=== PATIENT | female | born 1975 | race African-American/Black ===

== ENCOUNTER 2018-01-07 08:00 | Inpatient (IN) | payer OTHER ==
--- NOTE | 2018-02-03 09:14 | HP ---
History & Physical Update - Physical Physical: No Change - Assessment Assessment: No Change - Plan Plan: No Change
[2018-02-03] MEDS ORDERED: ceFAZolin SODIUM 1 GM VIAL ONE (09:36)
[2018-02-03] MEDS ORDERED: ROPIVACAINE HCL 0.5% 30ML VIAL ONE (09:55)
[2018-02-03] MEDS ORDERED: DEXAMETHASONE SOD PHOSPHATE/PF 10 MG/ML SDV ONE (09:55)
[2018-02-03] MEDS ORDERED: ceFAZolin 2 GRAM PREMIX BAG IVPB SCH (10:00)
[2018-02-03] MEDS ORDERED: MIDAZOLAM HCL 2 MG/2 ML SINGLE DOSE VIAL ONE ×3 (10:01→10:48)
[2018-02-03] MEDS ORDERED: fentaNYL CITRATE 250 MCG/5 ML VIAL ONE (10:48)
[2018-02-03] MEDS ORDERED: LIDOCAINE HCL/PF 2% SDV 5ML VIAL ONE (10:48)
[2018-02-03] MEDS ORDERED: ONDANSETRON 4 MG/2 ML VIAL ONE (10:48)
[2018-02-03] MEDS ORDERED: PROPOFOL 20 ML ONE (10:48)
[2018-02-03] MEDS ORDERED: ROCURONIUM BROMIDE 50 MG/5 ML VIAL ONE ×2 (10:48→11:57)
[2018-02-03] MEDS ORDERED: DEXAMETHASONE SOD PHOSPHATE 4 MG/1 ML VIAL ONE (10:48)
[2018-02-03] MEDS ORDERED: ceFAZolin SODIUM 1 GM VIAL IVPB ONE (10:59)
[2018-02-03] MEDS ORDERED: DESFLURANE GAS 240 ML BOTTLE IH ONE (11:30)
[2018-02-03] MEDS ORDERED: NEOSTIGMINE METHYLSULFATE 0.5 MG/ML - 10 ML MDV ONE (12:53)
[2018-02-03] MEDS ORDERED: PHENYLEPHRINE HCL 10 MG/1 ML SINGLE DOSE VIAL ONE (12:53)
[2018-02-03] MEDS ORDERED: GLYCOPYRROLATE 0.2 MG/1 ML VIAL ONE (12:54)
[2018-02-03] MEDS ORDERED: PROMETHAZINE HCL 25 MG/1 ML VIAL IVPUSH PRN (13:08)
[2018-02-03] MEDS ORDERED: ONDANSETRON 4 MG/2 ML VIAL IVPUSH PRN ×2 (13:09→13:14)
[2018-02-03] MEDS ORDERED: PROMETHAZINE HCL 25 MG/1 ML VIAL IVPB PRN (13:09)
[2018-02-03] MEDS ORDERED: DEXAMETHASONE SOD PHOSPHATE 4 MG/1 ML VIAL IVPUSH PRN (13:09)
[2018-02-03] MEDS ORDERED: oxyCODONE HCL 5 MG TABLET PO PRN (13:14)
[2018-02-03] MEDS ORDERED: IBUPROFEN 800 MG/8 ML IJ IVPB PRN (13:14)
[2018-02-03] MEDS ORDERED: ELECTROLYTE-148 SOLN 1,000 ML IV SCH (13:15)
[2018-02-03] MEDS: HYDROmorphone *PCA* 10MG/50ML DISP.SYRIN PCA SCH (13:30)
--- NOTE | 2018-02-03 14:01 | OP ---
DATE OF OPERATION: 02/03/2018 PREOPERATIVE DIAGNOSIS: Pelvic pain, menorrhagia, anemia, fibroid uterus. POSTOPERATIVE DIAGNOSIS: Pelvic pain, menorrhagia, anemia, fibroid uterus. PROCEDURE: Supracervical abdominal hysteroscopy and bilateral salpingectomy. SURGEON: Vargas Maria MD PATIENT BILLER: Najma Mandujano MD ANESTHESIA: General. ESTIMATED BLOOD LOSS: 150 mL. DESCRIPTION OF PROCEDURE: The patient was taken to the operating room. Under adequate general anesthesia, abdomen and perineum were prepped and draped. Pfannenstiel abdominal skin incision was made over the previous incision. Abdominal wall was cut layer by layer until peritoneum was exposed and incised. Upon entering the abdominal cavity, upper abdomen was checked and was normal. Bowels were packed away. There was a large fibroid uterus, multiple large myomas were seen. Both ovaries were normal. The right ovary had a corpus luteum cyst. Cul-de-sac was free of adhesions. At this time, after bowels were packed away, the round ligaments were identified bilaterally, clamped with bipolar cautery clamp, cauterized, and cut. Then the anterior leaf of the broad ligament was opened, and bladder was pushed down. Then the right tube was cauterized along the mesosalpinx, and the tube was removed with LigaSure cautery. Then a hole was made in the broad ligament, and the ovarian ligament was grasped with a Mario clamp and cauterized with LigaSure cautery and then was tagged with 2-0 Vicryl sutures bilaterally. At this time, the left tube also was removed with a LigaSure suture along the mesosalpinx. Adnexa was freed from the uterus, and the bladder was further pushed down. Uterine artery was identified bilaterally, clamped with Mario clamp, cut, and the clamp replaced with 0 Vicryl suture bilaterally. The paracervical area was clamped with a Mario clamp, cut, and the clamp replaced with 0 Vicryl suture bilaterally. No active bleeding was seen. The pelvic cavity was several times irrigated then reperitonealization of the pelvic floor was done with a continuous suture of 2-0 Vicryl. There was slight oozing on a right ovarian pedicle along the infundibulopelvic vessels, which the 3-0 interrupted suture was placed and hemostasis was established. Then irrigation was done, and no bleeding was seen. There was a small amount of bleeding from the corpus luteum cyst, which was controlled with pressure. Then all of the lap, sponge, and instrument counts were correct. Surgicel was placed at the base of the right ovary. Peritoneum was closed with 0 Vicryl continuous suture. Muscles were brought together with interrupted suture of 0 Vicryl. Fascia was closed with 0 Vicryl continuous suture. Subcutaneous fat with interrupted suture of 0 Vicryl. The skin was closed with 4-0 Biosyn subcuticular continuous suture. The patient tolerated the procedure well and left the OR in good condition. Sarah [id number]
[2018-02-03] MEDS: CEFAZOLIN 2 GM/D5W 2 GM/50 ML ML IVPB SCH (17:37)
[2018-02-04] MEDS: CEFAZOLIN 2 GM/D5W 2 GM/50 ML ML IVPB SCH ×2 (02:02→09:03)
[2018-02-04] MEDS: HYDROmorphone *PCA* 10MG/50ML DISP.SYRIN PCA SCH (04:45)
[2018-02-04] MEDS ORDERED: PCA PUMP KEY 1 EACH EACH ONE ×3 (05:30→12:53)
[2018-02-04] MEDS ORDERED: HYDROmorphone *PCA* 10MG/50ML DISP.SYRIN PCA ONE (05:32)
[2018-02-04 07:08] LABS: HEMATOCRIT 33.8 % (32.4-45.2); HEMOGLOBIN 10.6 GM/dL (10.7-15.3); MCH 23.4 pg (25.7-33.7); MCHC 31.2 g/dl (32.0-36.0); MEAN CELL VOLUME 74.9 fl (80-96); PLATELET COUNT 349 K/MM3 (134-434); RBC 4.52 M/mm3 (3.60-5.2)
[2018-02-04 07:59] LABS: ANION GAP 7 MMOL/L (8-16); BLOOD UREA NITROGEN 9 mg/dL (7-18); CALCIUM 8.4 mg/dL (8.5-10.1); CHLORIDE 103 mmol/L (98-107); CO2 27 mmol/L (21-32); CREATININE 0.8 mg/dL (0.55-1.3); GLUCOSE,RANDOM 110 mg/dL (74-106); POTASSIUM 3.6 mmol/L (3.5-5.1); SODIUM 137 mmol/L (136-145)
[2018-02-04] MEDS ORDERED: DOCUSATE SODIUM 100 MG CAPSULE (FP) PO PRN (08:27)
[2018-02-04] MEDS ORDERED: oxyCODONE HCL 5 MG TABLET PO PRN (08:27)
[2018-02-04] MEDS: ENOXAPARIN NA (PORCINE) 40 MG/0.4 ML DISP.SYRIN SQ SCH (09:04)
--- NOTE | 2018-02-04 09:34 | PN ---
Progress Note, Physician Chief Complaint: Pt sitting comfortably in bed, pain controlled with PROSPECTING DRILLER. No GA complaints. - Current Medication List Current Medications: Active Medications Acetaminophen (Tylenol -) 650 mg PO Q4H PRN PRN Reason: PAIN LEVEL 1-5 Dexamethasone Sodium Phosphate (Decadron Injection -) 4 mg IVPUSH ONCE PRN PRN Reason: NAUSEA AND/OR VOMITING Diphenhydramine HCl (Benadryl Injection -) 12.5 mg IVPUSH ONCE PRN PRN Reason: FOR ITCHING Docusate Sodium (Colace -) 100 mg PO Q8H PRN PRN Reason: CONSTIPATION Enoxaparin Sodium (Lovenox -) 40 mg SQ DAILY [facility] Last Admin: 02/04/18 09:04 Dose: 40 mg Cefazolin Sodium/Dextrose (Ancef 2 Gm Premixed Ivpb -) 2 gm in 50 mls @ 100 mls /hr IVPB Q8H-IV YESENIA Stop: 02/04/18 17:59 Last Admin: 02/04/18 09:03 Dose: 100 mls/hr Parenteral Electrolytes (Plasma-Lyte 148 -) 1,000 mls @ 125 mls/hr IV ASDIR [facility] Last Admin: 02/03/18 14:50 Dose: 0 mls Ibuprofen (Motrin -) 600 mg PO Q6H PRN PRN Reason: FEVER Ibuprofen (Caldolor Injection -) 800 mg IVPB Q6H PRN PRN Reason: Fever - If PO not effective. Lotrel 10/20 Mg 1 each PO [facility] Ondansetron HCl (Zofran Injection) 4 mg IVPUSH Q6H PRN PRN Reason: NAUSEA Oxycodone HCl (Roxicodone -) 5 mg PO Q4H PRN PRN Reason: PAIN LEVEL 4 - 6 Oxycodone HCl (Roxicodone -) 10 mg PO Q6H PRN PRN Reason: PAIN LEVEL 7 - 10 Promethazine HCl (Phenergan Injection -) 12.5 mg IVPB Q6H PRN PRN Reason: NAUSEA AND/OR VOMITING Last Admin: 02/03/18 13:35 Dose: 12.5 mg Simethicone (Mylicon -) 80 mg PO Q4H PRN PRN Reason: GAS - Objective Vital Signs: Vital Signs Temperature 98.7 F 02/04/18 08:16 Pulse Rate 107 H 09/19/18 08:16 Respiratory Rate 20 02/04/18 08:16 Blood Pressure 142/79 02/04/18 08:16 O2 Sat by Pulse Oximetry (%) 100 02/03/18 15:10 Constitutional: Yes: Well Nourished, No Distress, Calm Musculoskeletal: Yes: WNL Neurological: Yes: WNL, Alert, Oriented Labs: CBC, BMP 02/04/18 06:45 02/04/18 06:45 Assessment/Plan POD#1 s/p Total Abdominal Hysterectomy under GA. Doing well. D/C from anesthesia
--- NOTE | 2018-02-04 11:37 | PN ---
Progress Note (short form) - Note Progress Note: pod 1 doing well,sitting on chair. has generalized itching CBC, BMP 02/04/18 06:45 02/04/18 06:45 Last Vital Signs Temp Pulse Resp BP Pulse Ox 98.7 F 107 H 20 142/79 100 02/04/18 08:16 02/04/18 08:16 02/04/18 08:16 02/04/18 08:16 02/03/18 15:10 abdomen soft, no distension, no cva incision dry, clean no calf tenderness plan ambulate , oob, advance diet pain mamnagement
[2018-02-04] MEDS ORDERED: diphenhydrAMINE HCL 25 MG CAPSULE (FP) PO PRN (11:38)
[2018-02-04] MEDS: SIMETHICONE 80 MG TAB.CHEW (FP) PO PRN (11:52)
[2018-02-04] MEDS: IBUPROFEN 600 MG TABLET (FP) PO PRN ×2 (11:52→20:49)
[2018-02-04] MEDS: ACETAMINOPHEN 325 MG TABLET (FP) PO PRN (20:49)
[2018-02-04] MEDS ORDERED: LOTREL PO SCH (22:00)
[2018-02-05] MEDS: IBUPROFEN 600 MG TABLET (FP) PO PRN ×2 (06:11→13:25)
[2018-02-05] MEDS: ACETAMINOPHEN 325 MG TABLET (FP) PO PRN ×2 (06:11→13:24)
[2018-02-05 08:37] LABS: BASO % 0.4 % (0-2.0); EOS % 0.8 % (0-4.5); HEMATOCRIT 33.1 % (32.4-45.2); HEMOGLOBIN 10.6 GM/dL (10.7-15.3); MCH 24.2 pg (25.7-33.7); MCHC 31.9 g/dl (32.0-36.0); MEAN CELL VOLUME 75.7 fl (80-96); MEAN PLT VOLUME 8.4 fl (7.5-11.1); MONO % 11.3 % (3.8-10.2); NEUT % 63.5 % (42.8-82.8); PLATELET COUNT 313 K/MM3 (134-434); RBC 4.37 M/mm3 (3.60-5.2); RDW 22.1 % (11.6-15.6); WHITE BLOOD COUNT 11.2 K/mm3 (4.0-10.0)
[2018-02-05] MEDS ORDERED: MAGNESIUM HYDROX 2400MG/30ML ORAL SUSPENSION 30 ML CUP PO ONE (09:15)
[2018-02-05] MEDS: ENOXAPARIN NA (PORCINE) 40 MG/0.4 ML DISP.SYRIN SQ SCH (09:44)
[2018-02-05] MEDS: SIMETHICONE 80 MG TAB.CHEW (FP) PO PRN (13:24)
--- NOTE | 2018-02-05 14:51 | PATH ---
Surgical Pathology Report Patient Name: RENATO ESCOBAR [facility]. Rec. #: [id number] /Age/Gender: 1975 (Age: 43) / F Account: [id number] Location: [facility] OBS/FIELD COORDINATOR Taken: 02/03/2018 Received: 02/03/2018 Reported: 02/05/2018 Physicians: Vargas Maria M.D. Specimen(s) Received A: RIGHT FALLOPIAN TUBE B: LEFT FALLOPIAN TUBE C: UTERUS AND UTERINE FIBROIDS Clinical History Menorrhagia, pelvic pain, fibroid uterus Final Diagnosis A. FALLOPIAN TUBE, RIGHT, SALPINGECTOMY: UNREMARKABLE FALLOPIAN TUBE INCLUDING FIMBRIATED END AND FULL LUMINAL PORTION. B. FALLOPIAN TUBE, LEFT, SALPINGECTOMY: UNREMARKABLE FALLOPIAN TUBE INCLUDING FIMBRIATED END AND FULL LUMINAL PORTION. C. UTERUS, FIBROIDS, SUPRACERVICAL HYSTERECTOMY: PROLIFERATIVE ENDOMETRIUM. LEIOMYOMA(TA) WITH FOCAL DEGENERATIVE CHANGES. BENIGN ENDOCERVICAL TISSUE. Electronically Signed Natali Alvarado M.D. Gross Description A. Received in formalin labeled "right fallopian tube," is a 1.5 cm in length fimbriated fallopian tube. The outer surface is huang-bacon with adhesions. Sectioning reveals an unremarkable lumen. Production Administrative Assistant sections are submitted in 2 cassettes as follows: 1-fimbria; 2-cross sections of fallopian tube. B. Received in formalin labeled "left fallopian tube," is a 2 cm in length fimbriated fallopian tube. The outer surface is bacon purple and smooth. Sectioning reveals an unremarkable lumen. Production Administrative Assistant sections are submitted in 2 cassettes as follows: 1-fimbria; 2-cross sections of fallopian tube. C. Received in formalin labeled "uterus and uterine fibroids," is an 812 g supracervically amputated uterus with no attached adnexa. The specimen measures 14 cm from superior to inferior, 11 cm from left to right and 10 cm from anterior to posterior. The serosa is huang-mcclendon with abundant bulging and pedunculated subserosal nodules. The endometrial cavity measures 5 cm in length and 5 cm from cornu to cornu. The endometrium is huang-brown and averages 0.1 cm in thickness. There are abundant intramural nodules, measuring up to 8 cm in greatest dimension. One of the intramural nodules displays foci of cystic changes. The cut surface of the remaining nodules is huang and rubbery with whorled architecture. No areas of hemorrhage or necrosis are identified. The remaining myometrium is huang-pink and measures up to 5 cm in thickness. Production Administrative Assistant sections are submitted in 10 cassettes as follows: 1-cervical stump margin of resection; 4-6-[id number]; 5-6-jjqbgmswkt nodules; 8-intramural nodule with necrosis; 9-largest intramural nodule; 10-additional intramural nodules. 02/04/2018 [facility]02/04/2018
--- NOTE | 2018-02-05 19:56 | DS ---
Physical Exam-GLOBAL SALES EXECUTIVE Vital Signs: Vital Signs Temperature 98.3 F 02/05/18 14:00 Pulse Rate 92 H 02/05/18 14:00 Respiratory Rate 20 02/05/18 14:00 Blood Pressure 141/84 02/05/18 14:00 O2 Sat by Pulse Oximetry (%) 100 02/03/18 15:10 Constitutional: Yes: Well Nourished, No Distress, Calm Eyes: Yes: WNL, Conjunctiva Clear, EOM Intact HENT: Yes: WNL, Atraumatic, Normocephalic Neck: Yes: WNL, Supple, Trachea Midline Cardiovascular: Yes: WNL, Regular Rate and Rhythm Respiratory: Yes: WNL, Regular, CTA Bilaterally Gastrointestinal: Yes: WNL ...Rectal Exam: Yes: WNL Renal/: Yes: WNL External Genitalia: Yes: Normal Breast(s): Yes: WNL Musculoskeletal: Yes: WNL Extremities: Yes: WNL Edema: No Integumentary: Yes: WNL Wound/Incision: Yes: Clean/Dry, Well Approximated, Sutures Intact Neurological: Yes: WNL, Alert, Oriented ...Motor Strength: WNL Psychiatric: Yes: WNL, Alert, Oriented Labs: CBC, BMP 02/05/18 08:00 02/04/18 06:45 Discharge Summary Reason For Visit: MENORRHAGIA/PELVIC PAIN/FIBROIDS UTERUS Procedures: Principal: supracetvical abdominal hysterectomy Other Procedures: bilateral salpingectomy Condition: Good - Instructions Diet, Activity, Other Instructions: regular diet, follow up office 2 weeks, if pain, fever call MD Referrals: Vargas Maria MD [Staff Physician] - Disposition: HOME - Home Medications Comprehensive Discharge Medication List: Ambulatory Orders Amlodipine Besylate/Benazepril [Lotrel 10-20 mg Capsule] 1 cap PO DAILY Ibuprofen [Motrin -] 600 mg PO TID #90 tablet 02/05/18 Oxycodone HCl/Acetaminophen [Percocet 5-325 mg Tablet] 1 tab PO Q6H #20 tablet MDD 4 02/05/18
[2018-02-05] MEDS ORDERED: LISINOPRIL 20 MG TABLET (FP) PO SCH (22:00)
[2018-02-05] MEDS ORDERED: amLODIPine BESYLATE 10 MG TABLET (FP) PO SCH (22:00)
== END 2018-02-05 16:30 | disposition home or self-care (01) | DRG 743 ==
LOC: EDSTATUS 08:00 → JSAMEDAYSX 02-03 07:57 → J3W 02-03 15:10
PROVIDERS: ADMIT Obstetrics & Gynecology; ATTEND Obstetrics & Gynecology
PROC: 0UT70ZZ Resection of Bilateral Fallopian Tubes, Open Approach (ICD-10-PCS; 2018-02-03)
PROC: 0UT90ZL Resection of Uterus, Supracervical, Open Approach (ICD-10-PCS; principal; 2018-02-03 09:30)
DX: D25.9 Leiomyoma of uterus, unspecified (principal); N83.10 Corpus luteum cyst of ovary, unspecified side; D64.9 Anemia, unspecified; R10.2 Pelvic and perineal pain; N92.0 Excessive and frequent menstruation with regular cycle
CPT/HCPCS: 36415; 71046-TC-FY; 80048; 84702; 85025; 85027; 86850; 86900; 86901; 88302-TC; 88307-TC; 94010; 94760